=== PATIENT | male | born 1995 | race Caucasian/White ===

== ENCOUNTER 2018-08-18 23:41 | Emergency (ER) | payer BC ==
[2018-08-19] MEDS ORDERED: Sodium Chloride 0.9% 1,000 ML IV STA (00:04)
[2018-08-19] MEDS ORDERED: Famotidine 20 MG/2 ML SDV IVPUSH ONE (00:04)
[2018-08-19] MEDS ORDERED: Ondansetron 4 MG/2 ML SDV IVPUSH ONE (00:04)
[2018-08-19] MEDS ORDERED: Sodium Chloride 0.9% 10 ML Syringe FLUSH PRN (00:04)
--- NOTE | 2018-08-19 01:10 | EDM.PDOC ---
ED HPI GENERAL MEDICAL PROBLEM - General Chief Complaint: Gastrointestinal Problem Stated Complaint: BLOOD IN VOMIT Time Seen by Provider: 08/18/18 23:52 Source of Information: Reports: Patient, Family History Limitations: Reports: No Limitations - History of Present Illness INITIAL COMMENTS - FREE TEXT/NARRATIVE: The patient presents with nausea, vomiting, diarrhea and abdominal discomfort. The patient says when he vomited it looked like blood. He has been getting frequent nose bleeds. This has been an ongoing problem for years and then it goes away for months and then comes back. He had a bad one last night. He does not bruise easy and his gums do not bleed after brushing his teeth. He does not think he ate any bad food and he has not been around anyone who is sick. He has not vomited blood before. He has mild discomfort in his abdomen. Onset: Gradual Duration: Day(s): Location: Reports: Abdomen Quality: Reports: Ache, Stabbing Improves with: Reports: None Worsens with: Reports: None Associated Symptoms: Reports: Nausea/Vomiting. Denies: Chest Pain, Cough, Fever /Chills, Headaches, Shortness of Breath Middle Abdomen Pain Score (Numeric/FACES): 3 - Related Data Allergies Allergy/AdvReac Type Severity Reaction Status Date / Time No Known Allergies Allergy Verified 08/18/18 23:55 Home Meds: Home Meds . [No Known Home Meds] 08/18/18 [History] Past Medical History - Past Health History Medical/Surgical History: Denies Medical/Surgical History Social & Family History - Family History Family Medical History: Noncontributory - Tobacco Use Smoking Status *Q: Never Smoker Second Hand Smoke Exposure: No - Caffeine Use Caffeine Use: Reports: Soda - Recreational Drug Use Recreational Drug Use: No ED ROS GENERAL - Review of Systems Review Of Systems: See Below Constitutional: Reports: No Symptoms HEENT: Reports: Nosebleed Respiratory: Reports: No Symptoms Cardiovascular: Reports: No Symptoms Endocrine: Reports: No Symptoms GI/Abdominal: Reports: Abdominal Pain, Diarrhea, Hematemesis, Nausea, Vomiting : Reports: No Symptoms Musculoskeletal: Reports: No Symptoms Skin: Reports: No Symptoms Neurological: Reports: No Symptoms ED EXAM, GI/ABD - Physical Exam Exam: See Below Exam Limited By: No Limitations General Appearance: Alert, No Apparent Distress Ears: Normal External Exam Nose: Other (edema and erythema of the inner mucosa) Throat/Mouth: Normal Inspection Head: Atraumatic, Normocephalic Neck: Normal Inspection Respiratory/Chest: No Respiratory Distress, Lungs Clear, Normal Breath Sounds Cardiovascular: Regular Rate, Rhythm, No Edema, No Murmur GI/Abdominal Exam: Soft, Non-Tender, No Organomegaly, No Mass Back Exam: Normal Inspection Extremities: Normal Inspection Course - Vital Signs Last Recorded V/S: Last Vital Signs Temp 99.9 F 08/18/18 23:51 Pulse 95 08/18/18 23:51 Resp 16 08/18/18 23:51 BP 122/73 08/18/18 23:51 Pulse Ox 98 08/18/18 23:51 - Orders/Labs/Meds Orders: Active Orders 24 hr Category Date Time Status Peripheral IV Care [RC] . DIRECTED Care 08/19/18 00:05 Active Sodium Chloride 0.9% [Saline Flush] Med 08/19/18 00:04 Active 10 ml FLUSH ASDIRECTED PRN ED Antiemetic Medication Reflex [OM.PC] Stat Oth 08/19/18 00:05 Ordered ED GI Medications Reflex [OM.PC] Stat Oth 08/19/18 00:05 Ordered Peripheral IV Insertion Adult [OM.PC] Stat Oth 08/19/18 00:04 Ordered Medication Orders Sodium Chloride (Saline Flush) 10 ml FLUSH ASDIRECTED PRN PRN Reason: Keep Vein Open Last Admin: 08/19/18 00:24 Dose: 10 ml Labs: Laboratory Tests 08/19/18 08/19/18 08/19/18 Range/Units 00:17 00:17 00:17 WBC 11.94 H (4.23-9.07) K/mm3 RBC 5.63 (4.63-6.08) M/mm3 Hgb 16.0 (13.7-17.5) gm/L Hct 44.7 (40.1-51.0) % MCV 79.4 (79.0-92.2) fl MCH 28.4 (25.7-32.2) pg MCHC 35.8 H (32.2-35.5) g/dl RDW Std Deviation 36.6 (35.1-43.9) fL Plt Count 224 (163-337) K/mm3 MPV 10.7 (9.4-12.3) fl Neut % (Auto) 88.1 H (34.0-67.9) % Lymph % (Auto) 3.8 L (21.8-53.1) % [place] % (Auto) 7.4 (5.3-12.2) % Eos % (Auto) 0.4 L (0.8-7.0) Baso % (Auto) 0.1 (0.1-1.2) % Neut # (Auto) 10.53 H (1.78-5.38) K/mm3 Lymph # (Auto) 0.45 L (1.32-3.57) K/mm3 [place] # (Auto) 0.88 H (0.30-0.82) K/mm3 Eos # (Auto) 0.05 (0.04-0.54) K/mm3 Baso # (Auto) 0.01 (0.01-0.08) K/mm3 Manual Slide Review Abnormal smear PT 10.9 (9.5-12.1) SECONDS INR 1.00 APTT 26 (24-31) SECONDS Sodium 140 (136-145) mEq/L Potassium 3.9 (3.5-5.1) mEq/L Chloride 103 (98-107) mEq/L Carbon Dioxide 28 (21-32) mEq/L Anion Gap 12.9 (5-15) BUN 15 (7-18) mg/dL Creatinine 1.4 H (0.7-1.3) mg/dL Est Cr Clr Drug Dosing 79.65 mL/min Estimated GFR (MDRD) > 60 (>60) mL/min BUN/Creatinine Ratio 10.7 L (14-18) Glucose 112 H (74-106) mg/dL Calcium 9.4 (8.5-10.1) mg/dL Total Bilirubin 1.0 (0.2-1.0) mg/dL AST 15 (15-37) U/L ALT 34 (16-63) U/L Alkaline Phosphatase 67 (46-116) U/L Total Protein 8.2 (6.4-8.2) g/dl Albumin 4.6 (3.4-5.0) g/dl Globulin 3.6 gm/dL Albumin/Globulin Ratio 1.3 (1-2) Lipase 118 (73-393) U/L Meds: Medications Generic Name Dose Route Start Last Admin Trade Name Lanny PRN Reason Stop Dose Admin Sodium Chloride 10 ml 08/19/18 00:04 08/19/18 00:24 Saline Flush FLUSH 10 ml ASDIRECTED PRN Administration Keep Vein Open Discontinued Medications Generic Name Dose Route Start Last Admin Trade Name Lanny PRN Reason Stop Dose Admin Famotidine 20 mg 08/19/18 00:04 08/19/18 00:24 Pepcid IVPUSH 08/19/18 00:05 20 mg ONETIME ONE Administration Sodium Chloride 1,000 mls @ 1,000 mls/hr 08/19/18 00:04 08/19/18 00:22 Normal Saline IV 08/19/18 01:03 1,000 mls/hr .BOLUS STA Administration Ondansetron HCl 4 mg 08/19/18 00:04 08/19/18 00:22 Zofran IVPUSH 08/19/18 00:05 4 mg ONETIME ONE Administration - Re-Assessments/Exams Free Text/Narrative Re-Assessment/Exam: 08/19/18 01:10 I ordered an IV NS 1L bolus, zofran 4mg IV, labs and pepcid 20mg IV. 08/19/18 01:11 His WBC was slightly elevated at 11.94. His PT, INR and PTT were normal. His creatinine was slightly elevated at 1.4. His lipase was normal. 08/19/18 01:12 08/19/18 01:31 He feels better. I will discharge him home. Departure - Departure Time of Disposition: 01:35 Disposition: Home, Self-Care 01 Condition: Good Clinical Impression: Gastroenteritis, Epistaxis - Discharge Information *PRESCRIPTION DRUG MONITORING PROGRAM REVIEWED*: Not Applicable *COPY OF PRESCRIPTION DRUG MONITORING REPORT IN PATIENT ARSEN: Not Applicable Referrals: PCP,None [Primary Care Provider] - lAfonso Sutton MD [Ordering Only Provider] - 1 Week Forms: ED Department Discharge Additional Instructions: Take the zofran every 6 hours as needed for nausea and vomiting. Take pepcid 20mg daily for any upset stomach. Take angy daily for a couple weeks and use antibiotic ointment, petroleum jelly or air to keep your nose moist so it does not bleed. If you do have a nose bleed try some nasalcease. It is a product for nose bleeds that will help. Please return if you are worse. - My Orders Last 24 Hours: My Active Orders 08/19/18 00:04 Sodium Chloride 0.9% [Saline Flush] 10 ml FLUSH ASDIRECTED PRN Peripheral IV Insertion Adult [OM.PC] Stat 08/19/18 00:05 Peripheral IV Care [RC] . DIRECTED ED Antiemetic Medication Reflex [OM.PC] Stat ED GI Medications Reflex [OM.PC] Stat - Assessment/Plan Last 24 Hours: My Active Orders 08/19/18 00:04 Sodium Chloride 0.9% [Saline Flush] 10 ml FLUSH ASDIRECTED PRN Peripheral IV Insertion Adult [OM.PC] Stat 08/19/18 00:05 Peripheral IV Care [RC] . DIRECTED ED Antiemetic Medication Reflex [OM.PC] Stat ED GI Medications Reflex [OM.PC] Stat
== END 2018-08-19 01:51 | disposition home or self-care (01) ==
LOC: JD.ED 23:41
DX: K52.9 Noninfective gastroenteritis and colitis, unspecified (principal); R04.0 Epistaxis
CPT/HCPCS: 36415; 80053; 83690; 85025; 85610; 85730; 96361; 96374; 96375; 99284; J2405; J3490; J7040